=== PATIENT | female | born 1980 | race Two or more races ===

== ENCOUNTER 2021-12-01 18:26 | Emergency (ER) | payer BC, MEDICAID, OTHER ==
[2021-12-01 19:37] VITALS: BP 168/112
== END 2021-12-01 22:22 | disposition left against medical advice (07) ==
LOC: ER 18:29
DX: K08.89 Other specified disorders of teeth and supporting structures (principal); Z53.21 Procedure and treatment not carried out due to patient leaving prior to being seen by health care provider